=== PATIENT | male | born 1955 | race Caucasian/White ===

== ENCOUNTER 2017-02-23 22:05 | Observation (INO) | payer OTHER ==
[~2017-02-23] VITALS: Ht 167.6 cm; Wt 96.6 kg
[~2017-02-23 22:05] MED LIST: AMIT10 PO; CEPH500C3 PO; CHOL50006 PO; ERYT.5%O EACH EYE; HYDR-3533 PO; IBUP800 PO; NEXI40CA PO; ROSU10 PO; SYNT112T PO; TRAM50TA PO
[2017-02-23 22:10] VITALS: BP 154/109; PULSE 68; RESP 16; TEMP 98.3; O2SAT 98
[2017-02-23] MEDS ORDERED: PANTOPRAZOLE SODIUM 40 MG VIAL IVP ONE (22:30)
[2017-02-23] MEDS ORDERED: SODIUM CHLOR 0.9% 1000 ML INJ 1,000 ML IV SCH (22:30)
[2017-02-23] MEDS ORDERED: ONDANSETRON HCL 4 MG/2 ML VIAL IVP ONE (22:30)
[2017-02-23 22:41] LABS: AUTOMATED NEUTROPHIL # 3.7 TH/MM3 (1.8-7.7); BASOPHIL # 0.1 TH/MM3 (0-0.2); BASOPHIL % 0.8 % (0.0-2.0); EOSINOPHIL # 0.4 TH/MM3 (0-0.4); EOSINOPHIL % 6.6 % (0.0-4.0); HEMATOCRIT 38.6 % (39.0-51.0); MEAN CELL VOLUME 67.5 FL (80.0-100.0); MEAN CORPUSCULAR HEMOGLOBIN 21.3 PG (27.0-34.0); MEAN CORPUSCULAR HGB CONC 31.5 % (32.0-36.0); MONO % 7.5 % (0.0-8.0); NEUT % 55.1 % (16.0-70.0); PLATELET COUNT 310 TH/MM3 (150-450); RED BLOOD COUNT 5.72 MIL/MM3 (4.50-5.90); RED CELL DISTRIBUTION WIDTH 14.7 % (11.6-17.2); WHITE BLOOD COUNT 6.7 TH/MM3 (4.0-11.0)
[2017-02-23] MEDS ORDERED: LEVO112T2 PO (22:45)
[2017-02-23] MEDS ORDERED: LISI-515 PO (22:45)
[2017-02-23] MEDS ORDERED: ROSU20 PO (22:45)
[2017-02-23] MEDS ORDERED: NEXI40CA PO (22:45)
[2017-02-23 22:49] LABS: CHLORIDE 111 MEQ/L (98-107); HEMO FLAGS AUTO DIFF; POTASSIUM 3.7 MEQ/L (3.5-5.1); SODIUM (NA) 145 MEQ/L (136-145)
[2017-02-23 22:50] VITALS: BP 147/86; PULSE 60; RESP 18; O2SAT 98
--- NOTE | 2017-02-23 22:50 | PD ---
HPI Chief Complaint: GI Complaint Time Seen by Provider: 22:48 Travel History International Travel<30 days: No Contact w/Intl Traveler<30days: No Traveled to known affect area: No History of Present Illness HPI 61-year-old male with history of hypertension, high cholesterol, presents to the ER today for 2 days history of left shoulder pains, started having nausea and vomiting with about a teaspoon of blood this evening. He denies any diarrhea, black stools, fevers, chest pains, shortness of breath, or any other symptoms. Modifying Factors: None Associated Signs & Symptoms: Nausea, vomiting, vomiting of blood, left shoulder pain Risk Factors: None PFSH Past Medical History Heart Rhythm Problems: No Cardiac Catheterization: Yes (@ [facility]) Cardiovascular Problems: Yes (CHEST PAIN-----HEART CATH @[facility]) High Cholesterol: Yes Chest Pain: Yes Congestive Heart Failure: No Diabetes: No Diminished Hearing: Yes ([place]) GERD: Yes Hypertension: Yes Musculoskeletal: Yes (BACK PAIN HX) Thyroid Disease: Yes Past Surgical History Appendectomy: Yes Coronary Artery Bypass Graft: No Other Surgery: Yes (BIOPSY OF LYMPHNODE AND LEFT AND RIGHT LUNG) Social History Alcohol Use: No Tobacco Use: No Substance Use: No Allergies-Medications (Allergen,Severity, Reaction): Coded Allergies: No Known Allergies (Unverified , 02/23/17) Reported Meds & Prescriptions Reported Meds & Active Scripts Active Reported Levothyroxine (Levothyroxine Sodium) 112 Mcg Tab 112 Mcg PO DAILY Lisinopril 20 Mg Tab 20 Mg PO DAILY Crestor (Rosuvastatin Calcium) 20 Mg Tab 20 Mg PO DAILY Nexium (Esomeprazole DR) 40 Mg Capdr 40 Mg PO DAILY Review of Systems Except as stated in HPI: all other systems reviewed are Neg Physical Exam Narrative GENERAL: Well-developed elderly white male patient currently in moderate distress. Awake and oriented 3. SKIN: Focused skin assessment warm/dry. HEAD: Atraumatic. Normocephalic. EYES: Pupils equal and round. No scleral icterus. No injection or drainage. ENT: No nasal bleeding or discharge. Mucous membranes pink and moist. NECK: Trachea midline. No JVD. CARDIOVASCULAR: Regular rate and rhythm. No murmur appreciated. RESPIRATORY: No accessory muscle use. Clear to auscultation. Breath sounds equal bilaterally. GASTROINTESTINAL: Abdomen soft, non-tender, nondistended. Hepatic and splenic margins not palpable. MUSCULOSKELETAL: No obvious deformities. No clubbing. No cyanosis. No edema. NEUROLOGICAL: Awake and alert. No obvious cranial nerve deficits. Motor grossly within normal limits. Normal speech. PSYCHIATRIC: Appropriate mood and affect; insight and judgment normal. Data Data Last Documented VS Vital Signs Date Time Temp Pulse Resp B/P Pulse Ox O2 Delivery O2 Flow Rate FiO2 02/23/17 22:50 60 18 147/86 98 Room Air 02/23/17 22:10 98.3 Orders Complete Blood Count With Diff (02/23/17 22:30) Comprehensive Metabolic Panel (02/23/17 22:30) Lipase (02/23/17 22:30) Prothrombin Time / Inr (Pt) (02/23/17 22:30) Act Partial Throm Time (Ptt) (02/23/17 22:30) Iv Access Insert/Monitor (02/23/17 22:30) Ecg Monitoring (02/23/17 22:30) Oximetry (02/23/17 22:30) Ondansetron Inj (Zofran Inj) (02/23/17 22:30) Pantoprazole Inj (Protonix Inj) (02/23/17 22:30) Sodium Chlor 0.9% 1000 Ml Inj (Ns 1000 M (02/23/17 22:30) Sodium Chloride 0.9% Flush (Ns Flush) (02/23/17 22:30) Electrocardiogram (02/23/17 22:48) Ckmb (Isoenzyme) Profile (02/23/17 22:38) Troponin I (02/23/17 22:38) Chest, Single Ap (02/23/17 22:56) Labs Laboratory Tests Test 02/23/17 22:38 White Blood Count 6.7 TH/MM3 Red Blood Count 5.72 MIL/MM3 Hemoglobin 12.2 GM/DL Hematocrit 38.6 % Mean Corpuscular Volume 67.5 FL Mean Corpuscular Hemoglobin 21.3 PG Mean Corpuscular Hemoglobin 31.5 % Concent Red Cell Distribution Width 14.7 % Platelet Count 310 TH/MM3 Mean Platelet Volume 7.2 FL Neutrophils (%) (Auto) 55.1 % Lymphocytes (%) (Auto) 30.0 % Monocytes (%) (Auto) 7.5 % Eosinophils (%) (Auto) 6.6 % Basophils (%) (Auto) 0.8 % Neutrophils # (Auto) 3.7 TH/MM3 Lymphocytes # (Auto) 2.0 TH/MM3 Monocytes # (Auto) 0.5 TH/MM3 Eosinophils # (Auto) 0.4 TH/MM3 Basophils # (Auto) 0.1 TH/MM3 CBC Comment AUTO DIFF Differential Comment AUTO DIFF CONFIRMED Platelet Estimate NORMAL Platelet Morphology Comment NORMAL Ovalocytes 1+ Prothrombin Time 10.1 SEC Prothromb Time International 0.9 RATIO Ratio Activated Partial 27.4 SEC Thromboplast Time Sodium Level 145 MEQ/L Potassium Level 3.7 MEQ/L Chloride Level 111 MEQ/L Carbon Dioxide Level 27.9 MEQ/L Anion Gap 6 MEQ/L Blood Urea Nitrogen 16 MG/DL Creatinine 0.96 MG/DL Estimat Glomerular Filtration 79 ML/MIN Rate Random Glucose 110 MG/DL Calcium Level 8.0 MG/DL Total Bilirubin 0.2 MG/DL Aspartate Amino Transf 17 U/L (AST/SGOT) Alanine Aminotransferase 20 U/L (ALT/SGPT) Alkaline Phosphatase 62 U/L Total Creatine Kinase 93 U/L Troponin I 0.03 NG/ML Total Protein 6.6 GM/DL Albumin 3.4 GM/DL Lipase 255 U/L MDM Medical Decision Making Medical Screen Exam Complete: Yes Emergency Medical Condition: Yes Medical Record Reviewed: Yes Interpretation(s) EKG did not show any signs of acute ST-T elevations although there are mild depressions in 2 and aVF. Laboratory Tests Test 02/23/17 22:38 Hemoglobin 12.2 GM/DL (13.0-17.0) Hematocrit 38.6 % (39.0-51.0) Mean Corpuscular Volume 67.5 FL (80.0-100.0) Mean Corpuscular Hemoglobin 21.3 PG (27.0-34.0) Mean Corpuscular Hemoglobin 31.5 % Concent (32.0-36.0) Eosinophils (%) (Auto) 6.6 % (0.0-4.0) Ovalocytes 1+ (NORMAL) Chloride Level 111 MEQ/L (98-107) Estimat Glomerular Filtration 79 ML/MIN (>89) Rate Random Glucose 110 MG/DL (74-106) Calcium Level 8.0 MG/DL (8.5-10.1) Last 24 hours Impressions Chest X-Ray 02/23/17 [id number] Signed Impressions: Service Date/Time: Thursday, February 23, 2017 23:12 - CONCLUSION: No acute disease. Scooter Rodríguez MD Differential Diagnosis Vomiting, hematemesis, left shoulder painpancreatitis versus gastritis versus GI bleeding Narrative Course H&H is stable. Vital signs are stable in the ER. EKG did not show any signs of acute ST-T elevations. His lipase is normal. Abdomen is fairly benign. At this point, I am concerned about his hematemesis and patient is complaining of a left-sided back pain. My plan at this point would be to admit the patient for observation for further evaluation of cardiac enzymes and H&H. Case was discussed with Dr. Doss for admission. Diagnosis Primary Impression: Hematemesis Additional Impression: Atypical chest pain Admitting Information Admitting Physician Requests: Admit Raza Rosas MD Feb 23, 2017 22:50
[2017-02-23 22:53] LABS: ANION GAP 6 MEQ/L (5-15); BICARBONATE 27.9 MEQ/L (21.0-32.0); BLOOD UREA NITROGEN 16 MG/DL (7-18)
[2017-02-23 22:54] LABS: APTT (PATIENT) 27.4 SEC (24.3-30.1); INTERNATIONAL NORMALIZED RATIO 0.9 RATIO; PROTHROMBIN TIME - PATIENT 10.1 SEC (9.8-11.6)
[2017-02-23 22:55] LABS: ALT (GPT) 20 U/L (12-78)
[2017-02-23 22:56] LABS: AST (GOT) 17 U/L (15-37); GLOMERULAR FILTRATION RATE 79 ML/MIN (>89)
[2017-02-23 22:57] LABS: TOTAL BILIRUBIN ADULT 0.2 MG/DL (0.2-1.0)
[2017-02-23 22:58] LABS: ALKALINE PHOSPHATASE 62 U/L (45-117)
[2017-02-23 23:06] LABS: OVALOCYTES 1+ (NORMAL); PLATELET ESTIMATE SMEAR NORMAL (NORMAL); PLATELET MORPHOLOGY NORMAL (NORMAL); SCAN/DIFF AUTO DIFF CONFIRMED
[2017-02-23] MEDS: SODIUM CHLORIDE 0.9% FLUSH 10 ML FLUSH IV FLUSH PRN (23:07)
[2017-02-23 23:12] LABS: CREATINE KINASE 93 U/L (39-308)
--- NOTE | 2017-02-23 23:27 | RADRPT ---
EXAM DATE/TIME: 02/23/2017 23:12 [facility] COMPARISON: No previous studies available for comparison. INDICATIONS : Chest pain. Vomitting blood. MEDICAL HISTORY : None. SURGICAL HISTORY : None. ENCOUNTER: Initial ACUITY: 1 day PAIN SCORE: 5/10 LOCATION: Bilateral chest FINDINGS: A single view of the chest demonstrates the lungs to be symmetrically aerated without evidence of mas s, infiltrate or effusion. The cardiomediastinal contours are unremarkable. Osseous structures are intact. CONCLUSION: No acute disease. Scooter Rodríguez MD on February 23, 2017 at 23:25 Board Certified Radiologist. This report was verified electronically.
[2017-02-24] VITALS (7 sets, daily range): BP systolic 142–190; BP diastolic 94–115; PULSE 51–60; RESP 15–20; TEMP 97.4–98.6; O2SAT 93–99
[2017-02-24] MEDS ORDERED: NALOXONE HCL 0.4 MG/ML AMP IV PRN
[2017-02-24] MEDS ORDERED: ONDANSETRON HCL 4 MG/2 ML VIAL IVP PRN
[2017-02-24] MEDS ORDERED: SENNOSIDES 8.6 MG TAB PO PRN
[2017-02-24] MEDS ORDERED: LACTULOSE SYRUP 20 GM/30 ML CUP PO PRN
[2017-02-24] MEDS ORDERED: ACETAMINOPHEN 325 MG TAB PO PRN
[2017-02-24] MEDS ORDERED: MAGNESIUM HYDROXIDE SUSP 30 ML CUP PO PRN
[2017-02-24] MEDS ORDERED: BISACODYL 10 MG SUPP RECTAL PRN
[2017-02-24] MEDS ORDERED: MORPHINE SULFATE 8 MG/ML INJ IV PUSH SCH (00:45)
[2017-02-24 06:45] LABS: AUTOMATED NEUTROPHIL # 3.3 TH/MM3 (1.8-7.7); BASOPHIL # 0.1 TH/MM3 (0-0.2); BASOPHIL % 0.8 % (0.0-2.0); EOSINOPHIL # 0.4 TH/MM3 (0-0.4); EOSINOPHIL % 6.5 % (0.0-4.0); HEMATOCRIT 37.5 % (39.0-51.0); LYMPH % 31.9 % (9.0-44.0); MEAN CELL VOLUME 68.3 FL (80.0-100.0); MEAN CORPUSCULAR HEMOGLOBIN 20.9 PG (27.0-34.0); MEAN CORPUSCULAR HGB CONC 30.5 % (32.0-36.0); MONO % 7.4 % (0.0-8.0); NEUT % 53.4 % (16.0-70.0); PLATELET COUNT 286 TH/MM3 (150-450); RED CELL DISTRIBUTION WIDTH 14.5 % (11.6-17.2); WHITE BLOOD COUNT 6.3 TH/MM3 (4.0-11.0)
[2017-02-24 06:50] LABS: HEMO FLAGS AUTO DIFF
[2017-02-24 07:06] LABS: BICARBONATE 28.1 MEQ/L (21.0-32.0)
[2017-02-24 07:30] LABS: OVALOCYTES 1+ (NORMAL); SCAN/DIFF AUTO DIFF CONFIRMED
--- NOTE | 2017-02-24 07:30 | HHI.HP ---
[facility] Service [facility] [place] [facility] Primary Care Physician Carmita Silva MD Admission Diagnosis hematemesis/atypical chest pain Diagnoses: (1) Hematemesis Diagnosis: Principal (2) Microcytic anemia Diagnosis: Secondary (3) Atypical chest pain Diagnosis: Principal (4) Accelerated hypertension Diagnosis: Principal (5) Hyperlipidemia Diagnosis: Secondary (6) Hypothyroidism Diagnosis: Secondary Chief Complaint: Left shoulder pain, hematemesis Travel History International Travel<30 Days: No Contact w/Intl Traveler <30 Da: No Traveled to Known Affected Are: No History of Present Illness Written by Dmitry Castillo, acting as scribe for Dr. Back on 02/24/17 at 09: 46. This note was transcribed by scribe Dmitry YEE. I, Dr. April Back personally performed the history, physical exam, and medical decision making; and confirmed the accuracy of the information in the transcribed note. Authenticated by Dr. April Back on 02/24/17 at 09:46. 61-year-old male with known history of hypertension, hyperlipidemia, sarcoidosis , esophagitis, gastroesophageal reflux who presented to hospital for evaluation because episode of nausea/vomiting with vomiting of blood. Patient was in his normal state of health until last evening. Patient states that he had dinner proxy 9 PM and shortly thereafter he had an episode of nausea and vomiting, he did notice some blood in his emesis is which she quantifies as approximately 2 teaspoons. The patient has not had any recurrent nausea, vomiting or hematemesis. After the patient had the nausea vomiting he developed a discomfort in the middle part of his chest which he states was 5/10 on a pain scale that last for a couple seconds at a time. The patient indicates that he has had intermittent chest discomfort over the last few years. There is no radiation to the neck, back, shoulder, arm. There is no diaphoresis, shortness of breath, dyspnea, lightheadedness, dizziness. Because of the vomiting of blood and the chest discomfort he came to the emergency department for evaluation. Upon presentation patient did have accelerated hypertension, he indicates that he has been out of his blood pressure medication for a few days, he is waiting for new prescriptions. The patient does have history of esophagitis, gastroesophageal reflux. He does take proton pump inhibitor on a daily basis. He indicates that Dr. Guerrero is his cracking unit operator. He indicates that he had had endoscopy done approximately 2 years ago. Patient's customs investigator is Dr. Van. He does go to him on a regular basis. He indicates that he has undergone cardiac catheterization in the past with normal coronary arteries, recent stress test 2 years ago which was normal, angiogram which was normal. At the present time patient is asymptomatic. He denies any recurrent nausea, vomiting, chest pain. Review of Systems Cardiovascular: COMPLAINS OF: Chest pain Gastrointestinal: COMPLAINS OF: Abdominal pain, Vomiting Except as stated in HPI: all other systems reviewed are Neg Past Family Social History Past Medical History Hypertension Hyperlipidemia Hypothyroidism Gastroesophageal reflux Esophagitis Sarcoidosis, in remission Past Surgical History Cardiac catheterization Appendectomy Lymph node biopsy Lung biopsy Cataract surgery Reported Medications Reported Meds & Active Scripts Active Reported Levothyroxine (Levothyroxine Sodium) 112 Mcg Tab 112 Mcg PO DAILY Lisinopril 20 Mg Tab 20 Mg PO DAILY Crestor (Rosuvastatin Calcium) 20 Mg Tab 20 Mg PO DAILY Nexium (Esomeprazole DR) 40 Mg Capdr 40 Mg PO DAILY Allergies: Coded Allergies: No Known Allergies (Unverified , 02/23/17) Family History Reviewed is significant for father with myocardial infarction are from cancer, mother with diabetes Social History Patient quit smoking in the 70s, he states that he smoked while he is in the . Patient denies any alcohol or illicit drugs Physical Exam Vital Signs Vital Signs Date Time Temp Pulse Resp B/P Pulse Ox O2 Delivery O2 Flow Rate FiO2 02/24/17 04:47 98.0 51 16 142/94 98 02/24/17 00:55 18 02/24/17 00:44 98.6 53 18 173/100 97 02/23/17 22:50 60 18 147/86 98 Room Air 02/23/17 22:31 Room Air 02/23/17 22:10 98.3 68 16 154/109 98 Physical Exam GENERAL: Well-developed, well-nourished, in no acute distress. alert and orientated HEENT: Head is normocephalic without any lesions or masses noted. Facial features are symmetric. Eyes: Pupils equal round reactive to light. Extraocular muscles are intact. Conjunctivae were clear. Oropharyngeal: Pharynx without any erythema edema. Tongue is midline without deviation. Buccal mucosa is moist without any masses or lesions NECK: Supple without any masses. Trachea midline no deviation. No JVD, no bruits are appreciated CARDIAC: Regular rhythm, regular rate. S1/S2 are heard. No murmurs gallops or rubs. LUNGS: Clear to auscultation bilaterally. No wheeze, rhonchi or rales. No use of accessory muscles on inspiration or expiration. ABDOMEN: Soft, nontender. Nondistended. Bowel sounds heard in all 4 quadrants. No organomegaly or masses. Negative rebound, negative guarding EXTREMITIES: No edema, pulses are equal bilaterally. No cyanosis or clubbing NEUROLOGY: Mood and affect appear appropriate. Cranial nerves II through XII grossly intact. Muscle strength 5/5 in upper and lower extremities bilaterally. Deep tendon reflexes are 2+ in upper and lower extremities bilaterally. Laboratory Laboratory Tests Test 02/23/17 02/24/17 22:38 05:25 White Blood Count 6.7 6.3 Red Blood Count 5.72 5.50 Hemoglobin 12.2 11.5 Hematocrit 38.6 37.5 Mean Corpuscular Volume 67.5 68.3 Mean Corpuscular Hemoglobin 21.3 20.9 Mean Corpuscular Hemoglobin 31.5 30.5 Concent Red Cell Distribution Width 14.7 14.5 Platelet Count 310 286 Mean Platelet Volume 7.2 7.5 Neutrophils (%) (Auto) 55.1 53.4 Lymphocytes (%) (Auto) 30.0 31.9 Monocytes (%) (Auto) 7.5 7.4 Eosinophils (%) (Auto) 6.6 6.5 Basophils (%) (Auto) 0.8 0.8 Neutrophils # (Auto) 3.7 3.3 Lymphocytes # (Auto) 2.0 2.0 Monocytes # (Auto) 0.5 0.5 Eosinophils # (Auto) 0.4 0.4 Basophils # (Auto) 0.1 0.1 CBC Comment AUTO DIFF AUTO DIFF Differential Comment AUTO DIFF CONFIRMED Platelet Estimate NORMAL Platelet Morphology Comment NORMAL Ovalocytes 1+ Prothrombin Time 10.1 Prothromb Time International 0.9 Ratio Activated Partial 27.4 Thromboplast Time Sodium Level 145 146 Potassium Level 3.7 4.0 Chloride Level 111 112 Carbon Dioxide Level 27.9 28.1 Anion Gap 6 6 Blood Urea Nitrogen 16 15 Creatinine 0.96 0.80 Estimat Glomerular Filtration 79 98 Rate Random Glucose 110 93 Calcium Level 8.0 7.9 Total Bilirubin 0.2 Aspartate Amino Transf 17 (AST/SGOT) Alanine Aminotransferase 20 (ALT/SGPT) Alkaline Phosphatase 62 Total Creatine Kinase 93 80 Troponin I 0.03 0.02 Total Protein 6.6 Albumin 3.4 Lipase 255 Result Diagram: 02/24/1725 02/24/17 05 Imaging Last Impressions Chest X-Ray 02/23/172255 Signed Impressions: Service Date/Time: Thursday, February 23, 2017 23:12 - CONCLUSION: No acute disease. Scooter Rodríguez MD Assessment and Plan Assessment and Plan Hematemesis, resolved Patient with history of esophagitis, gastroesophageal reflux who presented with accelerated hypertension Hemoglobin is stable thus far, will continue monitor hemoglobin and hematocrit Continue Protonix Consult patient's cracking unit operator Dr. Guerrero Atypical chest pain Patient with increased risk factors include age, hypertension, hyperlipidemia, family history of heart disease Could be a component of esophagitis, gastroesophageal reflux, nausea vomiting, accelerated hypertension Continue trending cardiac enzymes to rule out any acute coronary event EKG with sinus rhythm and first-degree AV block Unable to use aspirin at this time due to hematemesis Unable to use beta eusebia, nitroglycerin due to bradycardia Continue NURY inhibitor Accelerated hypertension Resume patient's home medications Supply patient with prescription upon discharge Chronic microcytic anemia Hemoglobin continues to be stable Hyperlipidemia Continue statin Check lipid panel Hypothyroidism Continue replacement therapy DVT prevention Sequential compression devices, avoid chemical prophylaxis secondary to hematemesis Problem Qualifiers (1) Hyperlipidemia: Qualified Code: E78.5 - Hyperlipidemia, unspecified hyperlipidemia type (2) Hypothyroidism: Qualified Code: E03.9 - Hypothyroidism, unspecified type Dmitry Castillo Feb 24, 2017 07:30 April Back MD Feb 24, 2017 11:17
[2017-02-24] MEDS: PANTOPRAZOLE SODIUM 40 MG VIAL IV PUSH SCH ×2 (09:14→20:54)
[2017-02-24] MEDS: LEVOTHYROXINE SODIUM 112 MCG TAB PO SCH (09:20)
[2017-02-24] MEDS: ATORVASTATIN 40 MG TAB PO SCH (09:20)
[2017-02-24] MEDS: LISINOPRIL 20 MG TAB PO SCH (09:20)
[2017-02-24 10:57] LABS: HEMATOCRIT 40.6 % (39.0-51.0)
[2017-02-24 10:58] LABS: REVIEW FLAG FINAL
[2017-02-24] MEDS ORDERED: DEXTROSE 5% IN WATE 1000ML INJ 1,000 ML IV SCH (12:11)
--- NOTE | 2017-02-24 12:14 | EKG ---
Date Performed: 02/24/2017 Time Performed: 10:43:58 PTAGE: 61 years EKG: SINUS BRADYCARDIA NON-SPECIFIC ST/T WAVE CHANGES BORDERLINE ECG PREVIOUS TRACING : 02/24/2017 04.40 Compared to prior tracing no significant change DOCTOR: Ronnie Mace Interpretating Date/Time 02/24/2017 12:11:45
--- NOTE | 2017-02-24 13:19 | MB ---
cc: CATRACHITO BYRD M.D. DATE OF CONSULTATION: 02/24/2017 REASON FOR GI CONSULTATION: Hematemesis HISTORY OF PRESENT ILLNESS The patient is a pleasant 61-year-old male who was admitted with a bout of nausea and vomiting with hematemesis about 2 tablespoons in quantity. He has had no further vomiting since late last evening. He does have a history of GERD esophagitis and even duodenal erosions noted on upper endoscopy in the past. He has been followed by Dr. Guerrero in our practice. He also has a history of rectal bleeding and he has INC therapy for hemorrhoids in October of this year and he has also had colonoscopy. He has not had any recent endoscopy, however. He does take a PPI fairly regularly. He denies epigastric pain. He denies any lower GI bleeding or melena. He does admit to taking NSAIDs for several years for shoulder pain. He last took some approximately a week ago. He usually takes two to three at a time. He does not smoke. He denies alcohol use. He does have a history of atypical chest pain as well, previously evaluated. PAST MEDICAL HISTORY: 1. Hypertension. 2. Hyperlipidemia. 3. Hypothyroidism. 4. Gastroesophageal reflux. 5. Sarcoidosis in remission. 6. Appendectomy. 7. Previous lymph node. 8. Liver biopsy. 9. Cataract surgery. MEDICATIONS: 1. Levothyroxine. 2. Lisinopril. 3. Crestor. 4. Nexium. ALLERGIES: NONE. FAMILY HISTORY: Negative for GI disease. SOCIAL HISTORY: Noncontributory. REVIEW OF SYSTEMS: 12 point review of systems as stated above. PHYSICAL EXAMINATION: A well-developed male, alert, oriented x3, in no acute distress. Vital signs stable. HEENT: Normocephalic, atraumatic. Sclera anicteric. Oral mucosa moist. NECK: Supple. CARDIAC: S1-S2, regular rhythm. CHEST: Clear. ABDOMEN: Soft, nontender, benign. No masses or organomegaly. Bowel sounds are present. EXTREMITIES: Unremarkable. RECTAL: Deferred. LABORATORY DATA: Hemoglobin 12.2, most recently 11.5. Platelet count was normal. Liver enzymes were normal as well. IMPRESSION: 1. History of GERD and erosive duodenitis. 2. History of NSAID use. 3. Hematemesis, probably secondary to above. 4. History of sarcoidosis in remission. PLAN: Proceed with EGD tomorrow for further evaluation, rule out peptic ulcer disease, NSAID gastropathy. The procedure, risks and benefits were discussed including risks of bleeding, sepsis, perforation, risk of anesthesia. We will initiate Carafate therapy along with PPI, n.p.o. after midnight. Further recommendations pending results of endoscopy. I have discussed with the patient. MD CAROL ANN Frey/CHANEL /12:20 PM /1:15 PM
--- NOTE | 2017-02-24 13:23 | EKG ---
Date Performed: 02/24/2017 Time Performed: 04:40:03 PTAGE: 61 years EKG: SINUS BRADYCARDIA WITH FIRST DEGREE AV BLOCK ABNORMAL ECG PREVIOUS TRACING : 02/23/2017 22.54 Compared to prior tracing no significant change DOCTOR: Ronnie Mace Interpretating Date/Time 02/24/2017 13:21:51
--- NOTE | 2017-02-24 13:37 | EKG ---
Date Performed: 02/23/2017 Time Performed: 22:54:45 PTAGE: 61 years EKG: Sinus rhythm NORMAL ECG PREVIOUS TRACING : 03/05/2013 02.38 Compared to the previous tracing, rate has increased DOCTOR: Ronnie Mace Interpretating Date/Time 02/24/2017 13:36:19
[2017-02-24 14:25] LABS: HDL CHOLESTEROL 38.4 MG/DL (40.0-60.0)
[2017-02-24] MEDS: hydrALAZINE HCL 10 MG TAB PO PRN ×2 (14:36→20:54)
[2017-02-24] MEDS: SUCRALFATE 1 GM/10 ML CUP PO SCH ×2 (16:24→20:54)
[2017-02-24] MEDS: SODIUM CHLORIDE 0.9% FLUSH 10 ML FLUSH IV FLUSH PRN (16:26)
[2017-02-24] MEDS: ENALAPRILAT 2.5 MG/2 ML VIAL IV PUSH PRN (16:26)
[2017-02-24] MEDS: ACETAMINOPHEN/HYDROcodone 325 MG/5 MG TAB PO PRN (20:58)
[2017-02-25] VITALS (10 sets, daily range): BP systolic 123–178; BP diastolic 84–114; PULSE 53–71; RESP 16–20; TEMP 96.1–98.2; O2SAT 93–96
[2017-02-25] MEDS: LEVOTHYROXINE SODIUM 112 MCG TAB PO SCH (05:44)
[2017-02-25] MEDS: SUCRALFATE 1 GM/10 ML CUP PO SCH ×4 (05:45→21:54)
[2017-02-25 05:50] LABS: AUTOMATED NEUTROPHIL # 3.5 TH/MM3 (1.8-7.7); BASOPHIL # 0.1 TH/MM3 (0-0.2); BASOPHIL % 0.8 % (0.0-2.0); EOSINOPHIL # 0.4 TH/MM3 (0-0.4); EOSINOPHIL % 6.3 % (0.0-4.0); HEMATOCRIT 38.3 % (39.0-51.0); LYMPH % 28.2 % (9.0-44.0); LYMPHOCYTE # 1.8 TH/MM3 (1.0-4.8); MEAN CELL VOLUME 68.4 FL (80.0-100.0); MEAN CORPUSCULAR HEMOGLOBIN 21.6 PG (27.0-34.0); MEAN CORPUSCULAR HGB CONC 31.6 % (32.0-36.0); MONO % 7.3 % (0.0-8.0); NEUT % 57.4 % (16.0-70.0); PLATELET COUNT 268 TH/MM3 (150-450); RED CELL DISTRIBUTION WIDTH 14.7 % (11.6-17.2); WHITE BLOOD COUNT 6.3 TH/MM3 (4.0-11.0)
[2017-02-25 05:51] LABS: POTASSIUM 3.8 MEQ/L (3.5-5.1)
[2017-02-25 05:55] LABS: BICARBONATE 29.4 MEQ/L (21.0-32.0)
[2017-02-25 06:01] LABS: HEMO FLAGS AUTO DIFF
[2017-02-25 07:09] LABS: OVALOCYTES 1+ (NORMAL); PLATELET ESTIMATE SMEAR NORMAL (NORMAL); PLATELET MORPHOLOGY NORMAL (NORMAL); SCAN/DIFF AUTO DIFF CONFIRMED
[2017-02-25] MEDS: LISINOPRIL 20 MG TAB PO SCH (09:18)
[2017-02-25] MEDS: PANTOPRAZOLE SODIUM 40 MG VIAL IV PUSH SCH ×2 (09:19→21:54)
[2017-02-25] MEDS: ATORVASTATIN 40 MG TAB PO SCH (09:19)
[2017-02-25] MEDS: ENALAPRILAT 2.5 MG/2 ML VIAL IV PUSH PRN (09:39)
[2017-02-25] MEDS ORDERED: PROPOFOL 200 MG/20 ML AMP IV ONE (10:27)
--- NOTE | 2017-02-25 10:56 | HHI.PR ---
Subjective Remarks In the chair awaiting for the procedure. Says no more vomiting blood. Says he had a normal colored BM in the morning. No chest pain . Patient says she is anxious at times and gets sob and chest pain. No nausea, diaphoresis, lightheadedness. No fever or chills. Denies abd pain. Objective Vitals Vital Signs Date Time Temp Pulse Resp B/P Pulse Ox O2 Delivery O2 Flow Rate FiO2 02/25/17 10:00 99.0 58 20 176/106 95 02/25/17 08:00 98.0 60 18 178/114 95 02/25/17 04:17 97.9 61 16 158/92 96 02/25/17 00:31 97.5 53 16 143/94 95 02/24/17 20:53 98.2 60 20 172/101 96 02/24/17 20:00 57 02/24/17 17:40 97.4 59 16 148/100 93 02/24/17 13:01 97.4 59 15 182/115 99 I/O 02/24/17 02/24/17 02/24/17 02/25/17 02/25/17 02/25/17 07:00 15:00 23:00 07:00 15:00 23:00 Intake Total 1000 ml 1200 ml 172 ml Balance 1000 ml 1200 ml 172 ml Intake Oral 1200 ml IV Total 1000 ml 172 ml # Voids 4 2 Result Diagram: 02/25/17 0450 02/25/17 0450 Imaging Last Impressions Chest X-Ray 02/23/17 [id number] Signed Impressions: Service Date/Time: Thursday, February 23, 2017 23:12 - CONCLUSION: No acute disease. Scooter Rodríguez MD Objective Remarks GENERAL: Well-developed, well-nourished, in no acute distress. alert and orientated CARDIAC: Regular rhythm, regular rate. S1/S2 are heard. No murmurs gallops or rubs. LUNGS: Clear to auscultation bilaterally. No wheeze, rhonchi or rales. No use of accessory muscles on inspiration or expiration. ABDOMEN: Soft, nontender. Nondistended. Bowel sounds heard in all 4 quadrants. No organomegaly or masses. Negative rebound, negative guarding EXTREMITIES: No edema, pulses are equal bilaterally. No cyanosis or clubbing NEUROLOGY: Mood and affect appear appropriate. Cranial nerves II through XII grossly intact. Muscle strength 5/5 in upper and lower extremities bilaterally. Deep tendon reflexes are 2+ in upper and lower extremities bilaterally. A/P Problem List: (1) Hematemesis ICD Code: K92.0 Status: Acute (2) Microcytic anemia ICD Code: D50.9 Status: Acute (3) Atypical chest pain ICD Code: R07.89 Status: Acute (4) Accelerated hypertension ICD Code: I10 Status: Acute (5) Hyperlipidemia ICD Code: E78.5 Status: Acute (6) Hypothyroidism ICD Code: E03.9 Status: Acute Assessment and Plan Hematemesis, resolved Patient with history of esophagitis, gastroesophageal reflux who presented with accelerated hypertension Hemoglobin is stable thus far, will continue monitor hemoglobin and hematocrit Continue Protonix Consult patient's validation intern Dr. Guerrero. Seen by Dr Camarillo GI. S/P EHD with erosive gastritis, also cauterized, biopsies obtained, results in 7-10 days. Continue PPI , avoid NSAIDS per GI recommendations. To follow up as OP with GI. Atypical chest pain Patient with increased risk factors include age, hypertension, hyperlipidemia, family history of heart disease Could be a component of esophagitis, gastroesophageal reflux, nausea vomiting, accelerated hypertension Continue trending cardiac enzymes to rule out any acute coronary event EKG with sinus rhythm and first-degree AV block Unable to use aspirin at this time due to hematemesis Unable to use beta eusebia, nitroglycerin due to bradycardia Continue NURY inhibitor Trops neg, EKG without acute findings. Per Dr Van cardiology patient to follow up as OP with him in his office. Accelerated hypertension Resume patient's home medications Supply patient with prescription upon discharge Chronic microcytic anemia Hemoglobin continues to be stable Hyperlipidemia Continue statin Check lipid panel Hypothyroidism Continue replacement therapy DVT prevention Sequential compression devices, avoid chemical prophylaxis secondary to hematemesis Discussed with the patient. nurse. Discharge Planning DC home in stable condition to follow up as OP with PCP and consultants. Diet Healthy heart diet. Medication per med reconciliations. Avoid NSAIDS Activity: ad del as tolerated Problem Qualifiers (1) Hyperlipidemia: Qualified Code: E78.5 - Hyperlipidemia, unspecified hyperlipidemia type (2) Hypothyroidism: Qualified Code: E03.9 - Hypothyroidism, unspecified type April Back MD Feb 25, 2017 10:56
--- NOTE | 2017-02-25 11:14 | MR ---
cc: CATRACHITO BYRD DATE: 02/25/2017 DATE OF : 1955 PROCEDURE Upper endoscopy. INDICATION FOR PROCEDURE The patient has a history of GERD, atypical chest pain and recent hematemesis. PHOTOGRAPHS AND BIOPSIES Photographs were taken. Biopsies were taken. PREMEDICATIONS Administered by anesthesiology. MONITORING Monitoring was accomplished with pulse oximeter, EKG and blood pressure monitor. PROCEDURE NOTE After informed consent was obtained and the procedure risks and benefits were explained including risks of bleeding, sepsis, perforation and risk of anesthesia, the patient was placed in the left lateral position. The video endoscope was inserted per the oral route. The esophagus was carefully inspected. There was one small erosion at the EG junction from a history of gastroesophageal reflux and this was consistent with that entity. Just above this there was one small red spot noted. This was prophylactically cauterized using the Gold probe. There was no evidence of active bleeding whatsoever. The stomach was entered. The gastric mucosa was visualized in the proximal stomach. In the fundal area two small erosions were noted. These were not actively bleeding. The gastric body was unremarkable except for gastric polyps and two of these were removed using the cold forceps. In the antrum there was mild antritis noted. Biopsies were taken to H. pylori. The scope was passed through the pyloric ring and the first, second and third portion of the duodenum. The duodenal mucosa was unremarkable for any ulcer disease or bleeding source. The scope was then gradually withdrawn. Retroflexion was also achieved. The scope was removed. The patient tolerated the procedure well. No immediate complications were noted. IMPRESSION 1. Minimal erosive esophagitis. 2. Red spot noted at the EG junction which was prophylactically cauterized using the Gold probe. No active bleeding was seen. 3. Gastric erosions in the proximal stomach. 4. Mild antritis biopsied. PLAN Recommend continued acid suppression therapy with Protonix or pantoprazole once or twice daily. I would avoid NSAIDs. This was discussed with the patient. If hemoglobin is stable he will be discharged later today. Advance diet as tolerated. He can follow-up as an outpatient. We will follow the biopsies as well. MD CAROL ANN Frey/FRANCISCO JAVIER /10:46 AM /11:09 AM
[2017-02-25] MEDS ORDERED: SUCR1S PO (11:27)
[2017-02-25] MEDS ORDERED: SENN8.6T15 PO (11:27)
[2017-02-25] MEDS ORDERED: HYDR-3516 PO (11:27)
--- NOTE | 2017-02-25 11:28 | HHI.DS ---
Discharge Summary Admission Date Feb 23, 2017 at 23:49 Discharge Date: Feb 25, 2017 Admitting Diagnosis hematemesis/atypical chest pain (1) Hematemesis ICD Code: K92.0 Diagnosis: Principal (2) Microcytic anemia ICD Code: D50.9 Diagnosis: Secondary (3) Atypical chest pain ICD Code: R07.89 Diagnosis: Principal (4) Accelerated hypertension ICD Code: I10 Diagnosis: Principal (5) Hyperlipidemia ICD Code: E78.5 Diagnosis: Secondary (6) Hypothyroidism ICD Code: E03.9 Diagnosis: Secondary Procedures EGD with cauterization Brief History - From Admission Written by Dmitry Castillo, acting as scribe for Dr. Back on 02/24/17 at 09: 46. This note was transcribed by scribe Dmitry YEE. I, Dr. April Back personally performed the history, physical exam, and medical decision making; and confirmed the accuracy of the information in the transcribed note. Authenticated by Dr. April Back on 02/24/17 at 09:46. 61-year-old male with known history of hypertension, hyperlipidemia, sarcoidosis , esophagitis, gastroesophageal reflux who presented to hospital for evaluation because episode of nausea/vomiting with vomiting of blood. Patient was in his normal state of health until last evening. Patient states that he had dinner proxy 9 PM and shortly thereafter he had an episode of nausea and vomiting, he did notice some blood in his emesis is which she quantifies as approximately 2 teaspoons. The patient has not had any recurrent nausea, vomiting or hematemesis. After the patient had the nausea vomiting he developed a discomfort in the middle part of his chest which he states was 5/10 on a pain scale that last for a couple seconds at a time. The patient indicates that he has had intermittent chest discomfort over the last few years. There is no radiation to the neck, back, shoulder, arm. There is no diaphoresis, shortness of breath, dyspnea, lightheadedness, dizziness. Because of the vomiting of blood and the chest discomfort he came to the emergency department for evaluation. Upon presentation patient did have accelerated hypertension, he indicates that he has been out of his blood pressure medication for a few days, he is waiting for new prescriptions. The patient does have history of esophagitis, gastroesophageal reflux. He does take proton pump inhibitor on a daily basis. He indicates that Dr. Guerrero is his roller stitcher. He indicates that he had had endoscopy done approximately 2 years ago. Patient's marketing representative is Dr. Van. He does go to him on a regular basis. He indicates that he has undergone cardiac catheterization in the past with normal coronary arteries, recent stress test 2 years ago which was normal, angiogram which was normal. At the present time patient is asymptomatic. He denies any recurrent nausea, vomiting, chest pain. CBC/BMP: 02/25/17 0450 02/25/17 0450 Significant Findings Laboratory Tests Test 02/23/17 02/24/17 02/24/17 02/25/17 22:38 05:25 10:40 04:50 Hemoglobin 12.2 GM/DL 11.5 GM/DL 12.2 GM/DL 12.1 GM/DL (13.0-17.0) (13.0-17.0) (13.0-17.0) (13.0-17.0) Hematocrit 38.6 % 37.5 % 38.3 % (39.0-51.0) (39.0-51.0) (39.0-51.0) Mean Corpuscular Volume 67.5 FL 68.3 FL 68.4 FL (80.0-100.0) (80.0-100.0) (80.0-100.0) Mean Corpuscular Hemoglobin 21.3 PG 20.9 PG 21.6 PG (27.0-34.0) (27.0-34.0) (27.0-34.0) Mean Corpuscular Hemoglobin 31.5 % 30.5 % 31.6 % Concent (32.0-36.0) (32.0-36.0) (32.0-36.0) Eosinophils (%) (Auto) 6.6 % (0.0-4.0) 6.5 % (0.0-4.0) 6.3 % (0.0-4.0) Ovalocytes 1+ (NORMAL) 1+ (NORMAL) 1+ (NORMAL) Chloride Level 111 MEQ/L 112 MEQ/L (98-107) (98-107) Estimat Glomerular Filtration 79 ML/MIN (>89) 84 ML/MIN (>89) Rate Random Glucose 110 MG/DL (74-106) Calcium Level 8.0 MG/DL 7.9 MG/DL 8.4 MG/DL (8.5-10.1) (8.5-10.1) (8.5-10.1) Sodium Level 146 MEQ/L (136-145) Triglycerides Level 153 MG/DL (42-150) Cholesterol Level 235 MG/DL (120-200) LDL Cholesterol 166 MG/DL (0-99) HDL Cholesterol 38.4 MG/DL (40.0-60.0) Imaging Last Impressions Chest X-Ray 02/23/17 5321 Signed Impressions: Service Date/Time: Saturday, February 23, 2017 23:12 - CONCLUSION: No acute disease. Scooter Rodríguez MD PE at Discharge GENERAL: Well-developed, well-nourished, in no acute distress. alert and orientated CARDIAC: Regular rhythm, regular rate. S1/S2 are heard. No murmurs gallops or rubs. LUNGS: Clear to auscultation bilaterally. No wheeze, rhonchi or rales. No use of accessory muscles on inspiration or expiration. ABDOMEN: Soft, nontender. Nondistended. Bowel sounds heard in all 4 quadrants. No organomegaly or masses. Negative rebound, negative guarding EXTREMITIES: No edema, pulses are equal bilaterally. No cyanosis or clubbing NEUROLOGY: Mood and affect appear appropriate. Cranial nerves II through XII grossly intact. Muscle strength 5/5 in upper and lower extremities bilaterally. Deep tendon reflexes are 2+ in upper and lower extremities bilaterally. Hospital Course Hematemesis, resolved Patient with history of esophagitis, gastroesophageal reflux who presented with accelerated hypertension Hemoglobin is stable thus far, will continue monitor hemoglobin and hematocrit Continue Protonix Consult patient's roller stitcher Dr. Guerrero. Seen by Dr Marquise SERRATO. S/P EHD with erosive gastritis, also cauterized, biopsies obtained, results in 7-10 days. Continue PPI , avoid NSAIDS per GI recommendations. To follow up as OP with GI. Atypical chest pain Patient with increased risk factors include age, hypertension, hyperlipidemia, family history of heart disease Could be a component of esophagitis, gastroesophageal reflux, nausea vomiting, accelerated hypertension Continue trending cardiac enzymes to rule out any acute coronary event EKG with sinus rhythm and first-degree AV block Unable to use aspirin at this time due to hematemesis Unable to use beta eusebia, nitroglycerin due to bradycardia Continue NURY inhibitor Trops neg, EKG without acute findings. Per Dr Van cardiology patient to follow up as OP with him in his office. Accelerated hypertension Resume patient's home medications Supply patient with prescription upon discharge Chronic microcytic anemia Hemoglobin continues to be stable Hyperlipidemia Continue statin Check lipid panel Hypothyroidism Continue replacement therapy DVT prevention Sequential compression devices, avoid chemical prophylaxis secondary to hematemesis Discussed with the patient. nurse. Discharge Planning DC home in stable condition to follow up as OP with PCP and consultants. Diet Healthy heart diet. Medication per med reconciliations. Avoid NSAIDS Activity: ad del as tolerated Pt Condition on Discharge: Stable Discharge Disposition: Discharge Home Discharge Time: > 30 minutes Discharge Instructions DIET: Follow Instructions for: Heart Healthy Diet Additional Diet Instructions: Avoid NSAIDS Activities you can perform: Regular-No Restrictions Follow up Referrals: Cardiology - 1 Week with Mireya Van MD Gastroenterology - 2 Weeks with Katharine Odom MD PCP Follow-up - 2-3 Days New Medications: Hydrocodone-Acetaminophen (Hydrocodone-Acetaminophen) 5-325 mg Tab 1 TAB PO Q6H PRN PAIN 2-10 #10 TAB Sennosides (Senna Lax) 8.6 Mg Tab 17.2 MG PO Q12H PRN MODERATE - SEVERE CONSTIPATION #30 TAB Sucralfate Liq (Sucralfate Liq) 1 Gm/10 Ml Martha 1 GM PO ACHS gi protection Days 30 BOTTLE Continued Medications: Esomeprazole DR (Nexium) 40 Mg Capdr 40 MG PO DAILY Ref 0 CAP Levothyroxine (Levothyroxine) 112 Mcg Tab 112 MCG PO DAILY Thyroid #30 Ref 0 TAB Lisinopril (Lisinopril) 20 Mg Tab 20 MG PO DAILY #30 Ref 0 TAB Rosuvastatin (Crestor) 20 Mg Tab 20 MG PO DAILY Cholesterol Management #30 Ref 0 TAB April Back MD Feb 25, 2017 11:28
--- NOTE | 2017-02-25 11:28 | HHI.DCPOC ---
Discharge Care Plan Goals to Promote Your Health * To prevent worsening of your condition and complications * To maintain your health at the optimal level Directions to Meet Your Goals Take your medications as prescribed Follow your dietary instruction Follow activity as directed Keep your appointments as scheduled Take your immunizations and boosters as scheduled If your symptoms worsen call your PCP, if no PCP go to Urgent Care Center or Emergency Room Smoking is Dangerous to Your Health. Avoid second hand smoke Call the 24-hour hour crisis hotline for domestic abuse at April Back MD Feb 25, 2017 11:27
[2017-02-25] MEDS ORDERED: LISI-515 PO (13:40)
[2017-02-25] MEDS ORDERED: HYDR-3799 PO (13:48)
[2017-02-25] MEDS ORDERED: hydrALAZINE HCL 25 MG TAB PO ONE (14:00)
[2017-02-25] MEDS: ACETAMINOPHEN/HYDROcodone 325 MG/5 MG TAB PO PRN (14:22)
[2017-02-25] MEDS ORDERED: NORC5TAB PO (15:40)
[2017-02-25] MEDS ORDERED: FERR324T4 PO (15:53)
[2017-02-25] MEDS ORDERED: ACETAMINOPHEN/HYDROcodone 325 MG/10 MG TAB PO PRN (16:00)
[2017-02-25] MEDS ORDERED: NITROGLYCERIN 0.4 MG SL 25 TABS/BTL SL ONE (16:00)
[2017-02-25] MEDS ORDERED: LORazepam 0.5 MG TAB PO PRN (16:00)
[2017-02-25] MEDS ORDERED: NITROGLYCERIN 0.4 MG SL 25 TABS/BTL SL PRN (16:00)
[2017-02-25] MEDS ORDERED: MORPHINE SULFATE 8 MG/ML INJ IV PUSH PRN (16:45)
[2017-02-25] MEDS ORDERED: ACETAMINOPHEN/HYDROcodone 325 MG/5 MG TAB PO PRN (19:00)
--- NOTE | 2017-02-25 22:22 | MB ---
cc: MIREYA SCHWAB M.D. DATE OF CONSULTATION 02/25/2017 REASON FOR CONSULTATION Chest pain. HISTORY OF THE PRESENT ILLNESS This is a 61-year-old male who is well-known to me, had a past medical history of hyperlipidemia and hypertension. He presented to [facility] Emergency Room with complaint of chest pain. The patient had three sets of cardiac enzymes and EKG which were normal. He also had a symptoms of hematemesis and he had upper endoscopy this morning which revealed esophagitis and esophageal ulceration. The patient was going to be discharged home when he started having more chest pain and full body ache and elevated systolic blood pressure at 170 mmHg. He was kept in the hospital and I was consulted for further evaluation and management. The patient received morphine and his chest pain and body ache is completely resolved. He denies otherwise unprovoked or exertional shortness of breath. ALLERGIES Unknown. SOCIAL HISTORY Nonsmoker, nondrinker. FAMILY HISTORY Noncontributory. REVIEW OF SYSTEMS HEENT: No complaints of lightheadedness or dizziness. CARDIOVASCULAR: No cardiac history in the past. PULMONARY: No history of asthma or COPD. GASTROINTESTINAL: Positive for esophagitis. GENITOURINARY: No history of renal failure. The remainder of his review of systems is within normal limits. PHYSICAL EXAMINATION VITAL SIGNS: Shows a blood pressure of 152/102, with a heart rate of 60, respiratory rate of 12. The patient is afebrile. NECK: Supple with no jugular venous distention. CHEST: Clear to auscultation and percussion. HEART: S1 normal in intensity. S2 single. Regular rate and rhythm. No S3 appreciated. ABDOMEN: Benign. EXTREMITIES: No edema, clubbing or cyanosis. IMPRESSION 1. Chest pain most likely secondary to esophagitis and esophageal spasm. 2. Hematemesis. 3. Hypertension. 4. Hyperlipidemia. RECOMMENDATIONS The patient had a nuclear stress test recently which was normal. He was ruled out for myocardial infarction. His EKG is within normal limits. I believe his chest pain is more likely secondary to esophagitis and noncardiac in etiology. The patient is cleared to be discharged home whenever his blood pressure is stable. I will see him in my office for followup this week. Thank you for this consultation. Mireya Schwab MD /KK /6:49 PM /10:16 PM
[2017-02-26] VITALS: BP 143/90; PULSE 55; RESP 20; TEMP 96.1; O2SAT 95
[2017-02-26 04:00] VITALS: BP 164/108; PULSE 59; RESP 20; TEMP 96.6; O2SAT 95
[2017-02-26] MEDS: hydrALAZINE HCL 10 MG TAB PO PRN (05:19)
[2017-02-26] MEDS: LEVOTHYROXINE SODIUM 112 MCG TAB PO SCH (05:19)
[2017-02-26 06:05] VITALS: BP 154/101; PULSE 56; RESP 18; O2SAT 98
[2017-02-26] MEDS: SUCRALFATE 1 GM/10 ML CUP PO SCH ×3 (06:06→14:35)
[2017-02-26 08:00] VITALS: BP 159/105; PULSE 56; RESP 20; TEMP 97; O2SAT 97
--- NOTE | 2017-02-26 08:45 | HHI.PR ---
Subjective Remarks Feels much better. BP is better controlled. No chest pain overnight. No n/v/d/c. Objective Vitals Vital Signs Date Time Temp Pulse Resp B/P Pulse Ox O2 Delivery O2 Flow Rate FiO2 02/26/17 06:05 56 18 154/101 98 02/26/17 04:00 96.6 59 20 164/108 95 02/26/17 00:00 96.1 55 20 143/90 95 02/25/17 20:12 65 02/25/17 20:00 96.1 64 20 157/98 95 02/25/17 16:45 152/102 02/25/17 16:30 162/110 02/25/17 16:00 170/110 02/25/17 16:00 98.1 61 16 123/84 93 02/25/17 13:37 96.4 71 19 162/110 95 02/25/17 12:00 98.2 62 16 171/93 96 02/25/17 11:01 58 18 151/99 95 02/25/17 10:51 58 16 123/88 97 02/25/17 10:41 98.0 65 18 124/87 94 02/25/17 10:00 99.0 58 20 176/106 95 I/O 02/25/17 02/25/17 02/25/17 02/26/17 02/26/17 02/26/17 07:00 15:00 23:00 07:00 15:00 23:00 Intake Total 172 ml 340 ml 240 ml Balance 172 ml 340 ml 240 ml Intake Oral 240 ml 240 ml IV Total 172 ml Other 100 ml # Voids 2 3 1 # Bowel Movements 1 Result Diagram: 02/25/17 0450 02/25/17 0450 Objective Remarks GENERAL: Well-developed, well-nourished, in no acute distress. alert and orientated CARDIAC: Regular rhythm, regular rate. S1/S2 are heard. No murmurs gallops or rubs. LUNGS: Clear to auscultation bilaterally. No wheeze, rhonchi or rales. No use of accessory muscles on inspiration or expiration. ABDOMEN: Soft, nontender. Nondistended. Bowel sounds heard in all 4 quadrants. No organomegaly or masses. Negative rebound, negative guarding EXTREMITIES: No edema, pulses are equal bilaterally. No cyanosis or clubbing NEUROLOGY: Mood and affect appear appropriate. Cranial nerves II through XII grossly intact. Muscle strength 5/5 in upper and lower extremities bilaterally. Deep tendon reflexes are 2+ in upper and lower extremities bilaterally. Procedures EGD with cauterization A/P Problem List: (1) Hematemesis ICD Code: K92.0 Status: Acute (2) Microcytic anemia ICD Code: D50.9 Status: Acute (3) Atypical chest pain ICD Code: R07.89 Status: Acute (4) Accelerated hypertension ICD Code: I10 Status: Acute (5) Hyperlipidemia ICD Code: E78.5 Status: Acute (6) Hypothyroidism ICD Code: E03.9 Status: Acute Assessment and Plan Hematemesis, resolved Patient with history of esophagitis, gastroesophageal reflux who presented with accelerated hypertension Hemoglobin is stable thus far, will continue monitor hemoglobin and hematocrit Continue Protonix Consult patient's slope hoist operator Dr. Guerrero. Seen by Dr Marquise SERRATO. S/P EHD with erosive gastritis, also cauterized, biopsies obtained, results in 7-10 days. Continue PPI , avoid NSAIDS per GI recommendations. To follow up as OP with GI. Atypical chest pain Patient with increased risk factors include age, hypertension, hyperlipidemia, family history of heart disease Could be a component of esophagitis, gastroesophageal reflux, nausea vomiting, accelerated hypertension Continue trending cardiac enzymes to rule out any acute coronary event EKG with sinus rhythm and first-degree AV block Unable to use aspirin at this time due to hematemesis Unable to use beta eusebia, nitroglycerin due to bradycardia Continue NURY inhibitor Trops neg, EKG without acute findings. Per Dr Van cardiology patient to follow up as OP with him in his office. Accelerated hypertension Resume patient's home medications Supply patient with prescription upon discharge Chronic microcytic anemia Hemoglobin continues to be stable Hyperlipidemia Continue statin Check lipid panel Hypothyroidism Continue replacement therapy DVT prevention Sequential compression devices, avoid chemical prophylaxis secondary to hematemesis Discussed with the patient. nurse. Discharge Planning DC home in stable condition to follow up as OP with PCP and consultants. Diet Healthy heart diet. Medication per med reconciliations. Avoid NSAIDS Activity: ad del as tolerated Problem Qualifiers (1) Hyperlipidemia: Qualified Code: E78.5 - Hyperlipidemia, unspecified hyperlipidemia type (2) Hypothyroidism: Qualified Code: E03.9 - Hypothyroidism, unspecified type April Back MD Feb 26, 2017 08:45
[2017-02-26] MEDS ORDERED: LISINOPRIL 10 MG TAB PO SCH (09:00)
[2017-02-26] MEDS ORDERED: hydrALAZINE HCL 25 MG TAB PO ONE (09:00)
[2017-02-26] MEDS: PANTOPRAZOLE SODIUM 40 MG VIAL IV PUSH SCH (09:14)
[2017-02-26] MEDS: SODIUM CHLORIDE 0.9% FLUSH 10 ML FLUSH IV FLUSH PRN (09:14)
[2017-02-26] MEDS: ATORVASTATIN 40 MG TAB PO SCH (09:15)
--- NOTE | 2017-02-26 09:58 | EKG ---
Date Performed: 02/25/2017 Time Performed: 16:15:51 PTAGE: 61 years EKG: Sinus rhythm NORMAL ECG Compared to prior tracing no significant change PREVIOUS TRACING : 02/24/2017 10.43 DOCTOR: Roly King Interpretating Date/Time 02/26/2017 09:52:08
[2017-02-26 12:00] VITALS: BP 123/77; PULSE 80; RESP 20; TEMP 97.8; O2SAT 95
[2017-02-26] MEDS ORDERED: NEXI40CA PO (14:41)
[2017-02-26 16:00] VITALS: BP 137/87; PULSE 72; RESP 20; TEMP 98; O2SAT 95
[2017-02-26] MEDS ORDERED: hydrALAZINE HCL 25 MG TAB PO SCH (21:00)
== END 2017-02-26 17:48 | disposition home or self-care (01) ==
LOC: PHED 22:05 → PHEDA 23:49 → PH3A 02-24 00:33
PROVIDERS: ADMIT Hospitalist; ATTEND Hospitalist
PROC: 0DB18ZZ Excision of Upper Esophagus, Via Natural or Artificial Opening Endoscopic (ICD-10-PCS; principal; 2017-02-23)
PROC: 0DB68ZZ Excision of Stomach, Via Natural or Artificial Opening Endoscopic (ICD-10-PCS; 2017-02-23)
DX: K31.9 Disease of stomach and duodenum, unspecified (principal); K21.0 Gastro-esophageal reflux disease with esophagitis; K29.50 Unspecified chronic gastritis without bleeding; K29.80 Duodenitis without bleeding; K92.1 Melena; K92.0 Hematemesis; R07.89 Other chest pain; D50.9 Iron deficiency anemia, unspecified; I10 Essential (primary) hypertension; E78.5 Hyperlipidemia, unspecified; E03.9 Hypothyroidism, unspecified; I44.0 Atrioventricular block, first degree; Z79.1 Long term (current) use of non-steroidal anti-inflammatories (NSAID); Z79.899 Other long term (current) drug therapy
CPT/HCPCS: 01922; 43239; 71010; 80048; 80053; 80061; 82550; 83690; 84484; 85014; 85018; 85025; 85610; 85730; 88305; 88312; 93005; 96361; 96374; 96375; 99285; C9113; G0378; J2270; J2405; J7030; J7070